=== PATIENT | male | born 1970 | race Caucasian/White ===

== ENCOUNTER → 2020-08-29 17:58 | Outpatient (CLI) | payer SELFPAY, OTHER ==
[2020-08-16 09:48] VITALS: BMI 26.6
--- NOTE | 2020-08-29 17:59 | MRI_ITS ---
STUDY: MRI BRAIN WITH AND WITHOUT CONTRAST REASON FOR EXAM: Male, 49 years old. Left frontal astrocytoma -- Compare MRI [facility] (preop), [facility] [place] (postop). TECHNIQUE: Standardized multiplanar fat and water weighted pulse sequences were obtained. IV DOTAREM 15ML was administered for the contrast portion of the examination. COMPARISON: Preoperative imaging 30 April 2020, postoperative 03 May 2020 FINDINGS: The patient has left frontal astrocytoma which was resected in early April. Early postsurgical changes are slowly involuting with shrinking of the resection cavity and resorption of hemorrhagic products. Mass effect and edema in the left frontal lobe has markedly decreased and midline shift has resolved. Exact tumor dimensions are difficult to evaluate due to diffuse ill-defined and infiltrative nature of the lesion which merges imperceptibly with adjoining normal white matter. Overall dimensions are approximately 5.4 cm AP, 4.7 cm transverse and 4.7 cm craniocaudad. There is early mild extension across the corpus callosum. Central resection cavity has mild expected and diminishing postsurgical reactive enhancement of the granulation tissue. Tumor itself does not enhance. Remainder of the brain parenchyma is normal. Major vascular flow structures are intact. MRI/Brain W/WO Contrast IMPRESSION: 1. Expected appearance of partially resected left frontal astrocytoma. 2. Decreasing postsurgical cavity and reactive change. 3. 5.4 x 4.7 x 4.7 residual left frontal lobe lesion. 4. Resolution of mass effect. Electronically Signed: Yelitza Graf MD at 20:36 EDT Tel , Service support ,
== END ==
PROVIDERS: PCP Internal Medicine; Referring Provider Internal Medicine; Visit Provider Internal Medicine
DX: C72.9 Malignant neoplasm of central nervous system, unspecified (principal); Z98.890 Other specified postprocedural states
CPT/HCPCS: 70553; A9575

== ENCOUNTER → 2021-01-22 14:45 | Outpatient (CLI) | payer SELFPAY, OTHER ==
[2021-01-22 14:46] LABS: Bacteria 0 SEEN /hpf (None Seen); Mucous, Urine 0 SEEN /hpf (<or=2+); Red Blood Cells-Urine 0 SEEN /hpf (0-5); Squamous Epithelial Cells - UA 0 SEEN /hpf (0-5); White Blood Cells 0 SEEN /hpf (0-5)
[2021-01-22 16:52] LABS: Absolute Lymphocyte Count 1.03 X10^3/uL (0.83-4.51); Absolute Neutrophil Count 3.8 X10^3/uL (2.0-7.7); Basophil# 0.02 X10^3/uL; Basophil% 0.4 % (0-1); Eosinophil# 0.05 X10^3/uL; Eosinophils% 0.9 % (0-5); Hematocrit 40.5 % (40-54); Hemoglobin 12.1 g/dL (13.0-16.5); Lymphocyte # 1.03 X10^3/ul (0.83-4.51); Lymphocyte % 18.8 % (19-41); Mean Corp Hgb Conc 29.9 g/dL (32-36); Mean Corpuscular Hgb 24.9 pg (27.0-32.0); Mean Corpuscular Volume 83.3 fL (80-94); Mean Platelet Vol. 10.7 fl (6.2-12.0); Monocyte# 0.59 X10^3/uL; Monocyte% 10.8 % (0-10); NRBC Flagged by Analyzer 0 % (0-5); Neutrophil # 3.77 X10^3/uL (2.7-7.7); Neutrophil % 68.9 % (47-70); Platelet Count 296 K/mm3 (150-450); RBC Distribution Width CV 16.4 % (11.6-14.6); RBC Distribution Width SD 50.6 fl (35.1-43.9); Red Blood Count 4.86 M/mm3 (4.6-6.2); White Blood Count 5.5 K/mm3 (4.4-11.0)
[2021-01-22 16:53] LABS: Color, Urine Yellow (Yellow); Glucose, Dipstick Normal (Normal); Ketone-Dipstick Negative (Negative); Leukocyte Esterase-Dipstick Negative /ul (Negative); Nitrite-Dipstick Negative (Negative); Occult Blood-Urine Negative /ul (Negative); Protein-Dipstick Negative (Negative); Specific Gravity, Urine 1.015 (1.002-1.030); Urine Bilirubin Dipstick Negative (Negative); Urine Clarity Clear (Clear); Urine Urobilinogen Normal (Normal)
[2021-01-22 17:44] LABS: ALB/GLOB Ratio 0.7 RATIO (0.9-2.4); AST(SGOT) 25 U/L (15-37); Alanine Aminotransfer ALT/SGPT 31 U/L (16-61); Albumin, Serum 3.3 g/dL (3.2-5.0); Alkaline Phosphatase 84 U/L (45-117); Anion Gap 7 (5-15); BUN 13 mg/dL (7-18); BUN/Creat Ratio 11.3 RATIO (10-20); Calcium,Total 9.1 mg/dL (8.5-10.1); Chloride 104 mmol/L (98-107); Creatinine, Serum 1.15 mg/dL (0.70-1.30); EST Glomerular Filtration Rate 72 mL/min (>60); Est Glom Filt Rate - Afr Amer 87 mL/min (>60); Globulin 4.7 g/dL (2.2-4.2); Glucose 72 mg/dL (74-106); PSA,Total - Annual Screen 0.52 ng/mL (0.00-4.00); Potassium 4.3 mmol/L (3.5-5.1); Sodium Level 139 mmol/L (136-145); Thyroid Stim Hormone (TSH) 5.29 uIU/mL (0.358-3.74)
--- NOTE | 2021-01-22 18:11 | MRI_ITS ---
STUDY: MRI BRAIN WITH AND WITHOUT CONTRAST REASON FOR EXAM: Male, 50 years old. Follow up MRI astrocytoma resection Apr 2020 [facility] COMPARE TO PREVIOUS TECHNIQUE: Standardized multiplanar fat and water weighted pulse sequences were obtained. IV 14ml Dotarem was administered for the contrast portion of the examination. COMPARISON: 08/29/2020. FINDINGS: Again noted is a left craniectomy with underlying left frontal surgical cavity which demonstrate minimal enhancement and surrounding edema. The surgical cavity has decreased in size in comparison with the prior examination. The surrounding edema is stable in comparison with the prior examination. There is no evidence of increased enhancement or new lesions. MRI/Brain W/WO Contrast IMPRESSION: Stable left frontal surgical cavity. Electronically Signed: Seun Matos MD at 15:01 EDT Tel , Service support ,
[2021-01-23 16:20] LABS: Free T3 2.8 pg/mL (2.18-3.98); T4 Free Direct 0.82 ng/dL (0.76-1.46)
== END ==
PROVIDERS: PCP Internal Medicine; Referring Provider Internal Medicine; Visit Provider Internal Medicine
DX: R56.9 Unspecified convulsions (principal); R94.6 Abnormal results of thyroid function studies; C71.9 Malignant neoplasm of brain, unspecified; C72.9 Malignant neoplasm of central nervous system, unspecified; Z12.5 Encounter for screening for malignant neoplasm of prostate
CPT/HCPCS: 36415; 70553; 80053; 81001; 84153; 84439; 84443; 84481; 85025; A9575; G0103

== ENCOUNTER → 2021-12-23 | Outpatient (CLI) | payer SELFPAY, OTHER ==
--- NOTE | 2021-12-23 16:53 | MRI_ITS ---
STUDY: CT BRAIN WITHOUT AND WITH CONTRAST REASON FOR EXAM: Male, 51 years old. Hx astrocytoma, L frontopar, s/p res 2020 Individualized dose optimization techniques were used for this CT. TECHNIQUE: Transaxial CT imaging of the brain was performed without/ w 15 cc of clariscan administration of intravenous contrast material. Comparison: 01/22/2021 FINDINGS: Left craniotomy changes. Normal soft tissues. Normal size ventricles and extra-axial spaces for the patient''s age. Normal white matter tracts of the cerebral hemispheres. Normal basal ganglia and thalami. Normal brainstem. There is mild cerebellar atrophy. There is a left frontal surgical cavity which demonstrate minimal enhancement and surrounding edema. The surgical cavity is stable in size. The surrounding edema is stable in comparison with the prior examination. There is no evidence of increased enhancement or new lesions. Area of enhancement has decreased in size on the left. There is no intracranial hemorrhage. There are no findings of an acute ischemic infarction. Normal visualized paranasal sinuses. ASPECTS Score for Acute Strokes: 01/06 MRI/Brain W/WO Contrast IMPRESSION: Decreased enhancement in the surgical cavity on the left suggesting improvement in findings. Electronically Signed: Gelacio Fraser MD at 21:41 EDT ,
== END | disposition home or self-care (01) ==
PROVIDERS: PCP Internal Medicine; Referring Provider Internal Medicine; Visit Provider Internal Medicine
DX: C71.9 Malignant neoplasm of brain, unspecified (principal); C72.9 Malignant neoplasm of central nervous system, unspecified
CPT/HCPCS: 70553; A9575

== ENCOUNTER → 2022-06-26 | Outpatient (CLI) | payer SELFPAY, OTHER ==
--- NOTE | 2022-06-26 17:45 | MRI_ITS ---
EXAM: MR HEAD WITHOUT AND WITH INTRAVENOUS CONTRAST CLINICAL INDICATION: History of astrocytoma. TECHNIQUE: Multiplanar and multisequence MR images of the brain were obtained without and with intravenous contrast. Magnetic field strength 1.5 T. This report was created using [employer] report XIHA technology. CONTRAST: 15cc Clariscan IV. COMPARISON: 12/23/2021 and 01/22/2021. FINDINGS: BRAIN AND EXTRA-AXIAL SPACES: Unremarkable. No intra- or extra-axial hemorrhage. No evidence of acute infarct. There is preservation of the ayala/white matter interface. Posterior fossa structures are unremarkable. Ventricles are appropriate for age. No hydrocephalus. Basal cisterns are patent. No change in the appearance of the left frontal resection cavity and surrounding vasogenic edema. No change in the minimal enhancement of the gliosis at the surgical site. SELLA: Unremarkable. Normal sella turcica, pituitary gland, infundibular stalk, optic chiasm and hypothalamus. AUDITORY SYSTEM: Unremarkable. The internal auditory canals are patent. BONES/JOINTS: Old left frontal craniotomy. No discrete lytic or blastic abnormalities. SINUSES: Unremarkable as visualized. Clear. MASTOID AIR CELLS: Unremarkable as visualized. Clear. ORBITS: Unremarkable as visualized. Both globes, extraocular muscles, optic nerves and retrobulbar fat appear unremarkable. VASCULATURE: Unremarkable as visualized. Normal flow voids in the major intracranial circulation. MRI/Brain W/WO Contrast IMPRESSION: No significant change in the appearance of the left frontal resection cavity and surrounding vasogenic edema. Electronically Signed: Dereck Ulloa MD at 0:53 EDT ,
== END | disposition home or self-care (01) ==
LOC: MRI 17:45
PROVIDERS: PCP Internal Medicine; Referring Provider Internal Medicine; Visit Provider Internal Medicine
DX: C71.9 Malignant neoplasm of brain, unspecified (principal); C72.9 Malignant neoplasm of central nervous system, unspecified; Z98.890 Other specified postprocedural states
CPT/HCPCS: 70553; A9575

== ENCOUNTER → 2023-01-19 | Outpatient (CLI) | payer SELFPAY, OTHER ==
--- NOTE | 2023-01-19 15:52 | MRI_ITS ---
STUDY: MRI BRAIN WITH AND WITHOUT CONTRAST REASON FOR EXAM: Male, 52 years old. History of brain cancer -- Compare to previous scans. TECHNIQUE: Standardized multiplanar fat and water weighted pulse sequences were obtained. IV 15ml Clariscan was administered for the contrast portion of the examination. COMPARISON: MRI of the brain dated June 26, 2022 FINDINGS: Stable appearance of the surgical resection bed in the left frontal lobe from anterior to posterior with the overlying craniotomy defects, cystic encephalomalacia in the surgical bed, chronic vasogenic edematous signal in the parenchyma, and mild residual parenchymal scarring and spiculation, that demonstrates mild enhancement, but no significant change from the June 26 2022 study. Redemonstration of diffuse edema across the body and the genu of the splenium of the corpus callosum, most pronounced on the left side and extending across the midline to the right. This is unchanged since June 26, 2022 and may be a combination of desmoplastic reaction and posttreatment changes. No visualized recurrent mass in the surgical bed with enhancement. No new masses or metastatic lesions are seen in the remaining aspects of the cerebral hemispheres. No demonstrated thickening or abnormal enhancement of the dura or meninges on the current study. No midline shift or hydrocephalus is present. There is mild cerebral atrophy with widening of the extra-axial spaces and ventricular dilatation. There are a limited number of small white matter hyperintensities, distributed throughout the deep white matter tracts of the cerebral hemispheres, consistent with mild chronic white matter ischemic changes. There is no evidence for recent intracranial ischemia or other cause of cytotoxic edema on diffusion weighted imaging (DWI). Normal T2* images of the brain without demonstrated susceptibility artifact. There is no demonstrated hemosiderin stain. Normal bilateral basal ganglia. Normal thalami. There is no extra-axial fluid accumulation. Normal flow voids within the major intracranial circulation suggesting patency by spin echo criteria. Normal venous enhancement. Normal sella turcica, pituitary gland, infundibular stalk, optic chiasm and hypothalamus. Normal tectal plate and pineal gland. Normal midbrain, sara and medulla. Normal cerebellum. Normal basal cisterns. Normal bilateral temporal bones. Normal bilateral internal auditory canals. No demonstrated orbital abnormality, within the constraints of a routine brain study. Normal visualized paranasal sinuses. Normal calvarium and skull base. Normal visualized soft tissue structures. Normal visualized upper cervical spine. MRI/Brain W/WO Contrast IMPRESSION: 1. Stable appearance of the surgical resection bed in the left frontal lobe from anterior to posterior with the overlying craniotomy defects, cystic encephalomalacia in the surgical bed, chronic vasogenic edematous signal in the parenchyma, and mild residual parenchymal scarring and spiculation, that demonstrates mild enhancement, but no significant change from the June 26 2022 study. Redemonstration of diffuse edema across the body and the genu of the splenium of the corpus callosum, most pronounced on the left side and extending across the midline to the right. This is unchanged since June 26, 2022 and may be a combination of desmoplastic reaction and posttreatment changes. 2. No visualized recurrent mass in the surgical bed with enhancement. 3. No new masses or metastatic lesions are seen in the remaining aspects of the cerebral hemispheres. 4. No demonstrated thickening or abnormal enhancement of the dura or meninges on the current study. Electronically Signed: Tru Freedman MD at 14:31 EDT ,
[2023-01-19 16:30] LABS: Absolute Lymphocyte Count 1.26 X10^3/uL (0.83-4.51); Absolute Neutrophil Count 3.4 X10^3/uL (2.0-7.7); Basophil# 0.01 X10^3/uL; Basophil% 0.2 % (0-1); Eosinophil# 0.08 X10^3/uL; Eosinophils% 1.5 % (0-5); Hematocrit 41.9 % (40-54); Lymphocyte # 1.26 X10^3/ul (0.83-4.51); Lymphocyte % 24.1 % (19-41); Mean Corp Hgb Conc 33.4 g/dL (32-36); Mean Corpuscular Hgb 29.5 pg (27.0-32.0); Mean Corpuscular Volume 88.4 fL (80-94); Mean Platelet Vol. 9.6 fl (6.2-12.0); Monocyte# 0.44 X10^3/uL; Monocyte% 8.4 % (0-10); NRBC Flagged by Analyzer 0 % (0-5); Neutrophil # 3.42 X10^3/uL (2.7-7.7); Neutrophil % 65.6 % (47-70); Platelet Count 225 K/mm3 (150-450); RBC Distribution Width CV 12.5 % (11.6-14.6); RBC Distribution Width SD 40.4 fl (35.1-43.9); Red Blood Count 4.74 M/mm3 (4.6-6.2); White Blood Count 5.2 K/mm3 (4.4-11.0)
[2023-01-19 17:16] LABS: Vitamin D,25 Hydroxy 56.2 ng/mL
[2023-01-19 17:19] LABS: ALB/GLOB Ratio 0.9 RATIO (0.9-2.4); AST(SGOT) 22 U/L (15-37); Alanine Aminotransfer ALT/SGPT 32 U/L (16-61); Albumin, Serum 3.4 g/dL (3.2-5.0); Alkaline Phosphatase 70 U/L (45-117); Anion Gap 3 (5-15); BUN 14 mg/dL (7-18); Calcium,Total 8.9 mg/dL (8.5-10.1); Chloride 106 mmol/L (98-107); Cholesterol 195 mg/dL (200); Creatinine, Serum 0.93 mg/dL (0.70-1.30); EST Glomerular Filtration Rate 91 mL/min (>60); Est Glom Filt Rate - Afr Amer 110 mL/min (>60); Free T3 2.9 pg/mL (2.18-3.98); Globulin 3.9 g/dL (2.2-4.2); Glucose 66 mg/dL (74-106); High Density Lipoprotein 60 mg/dL; PSA,Total - Annual Screen 0.94 ng/mL (0.00-4.00); Protein, Total 7.3 g/dL (6.4-8.2); Sodium Level 140 mmol/L (136-145); T4 Free Direct 0.88 ng/dL (0.76-1.46); Thyroid Stim Hormone (TSH) 3.89 uIU/mL (0.358-3.74); Triglycerides 122 mg/dL; Very Low Density Lipoprotein 24 mg/dL (5-40)
== END | disposition home or self-care (01) ==
LOC: MRI 15:47
PROVIDERS: PCP Internal Medicine; Referring Provider Internal Medicine; Visit Provider Internal Medicine
DX: Z13.220 Encounter for screening for lipoid disorders (principal); C71.9 Malignant neoplasm of brain, unspecified; R56.9 Unspecified convulsions; R79.89 Other specified abnormal findings of blood chemistry; Z98.890 Other specified postprocedural states; Z12.5 Encounter for screening for malignant neoplasm of prostate
CPT/HCPCS: 36415; 70553; 80053; 80061; 82306; 84153; 84439; 84443; 84481; 85025; A9575; G0103

== ENCOUNTER → 2023-07-27 | Outpatient (CLI) | payer SELFPAY, OTHER ==
--- NOTE | 2023-07-27 06:44 | MRI_ITS ---
EXAM: MR HEAD WITHOUT AND WITH INTRAVENOUS CONTRAST CLINICAL INDICATION: History of diffuse astrocytoma, SP craniotomy TECHNIQUE: Multiplanar and multisequence MR images of the brain were obtained without and with intravenous contrast. CONTRAST: 15 mL of IV Clariscan. COMPARISON: MRI brain with and without contrast 01/19/2023. FINDINGS: BRAIN AND EXTRA-AXIAL SPACES: There is a solid T1 hypointense mass measuring 2.8 x 1.7 cm in the left frontal lobe with surrounding vasogenic edema. This is hyperintense on T2 and hypointense on flair sequence. There is a surgical cavity in the left frontal lobe convexity underneath the craniotomy site with very minimal ill-defined contrast enhancement anterior end underneath the surgical cavity. There is increase in mass effect with more caudal displacement of the anterior body of the left lateral ventricle and 6.6 mm [id number] midline shift across the anterior interhemispheric fissure, previously 6.3 mm. No intra- or extra-axial hemorrhage. No evidence of acute infarct. Posterior fossa structures are unremarkable. No hydrocephalus. Basal cisterns are patent. SELLA: Unremarkable. Normal sella turcica, pituitary gland, infundibular stalk, optic chiasm and hypothalamus. AUDITORY SYSTEM: Unremarkable. The internal auditory canals are patent. BONES/JOINTS: Left frontal bone craniotomy site is unchanged. No discrete lytic or blastic abnormalities. SINUSES: Unremarkable as visualized. Clear. MASTOID AIR CELLS: Unremarkable as visualized. Clear. ORBITS: Unremarkable as visualized. Both globes, extraocular muscles, optic nerves and retrobulbar fat appear unremarkable. VASCULATURE: Unremarkable as visualized. Normal flow voids in the major intracranial circulation. MRI/Brain W/WO Contrast IMPRESSION: Suspicious increasing size of the nonenhancing component of the solid mass in the left frontal lobe. This is hypointense on T1, hyperintense on T2 and hypointense on FLAIR sequences. This measures approximately 2.8 x 1.9 cm in the axial projection, previously 2.6 x 1.5 cm. In the coronal projection, this measures 3 x 2.8 cm, previously 2.8 x 2.7 cm. There is increasing surrounding vasogenic edema with increased caudal displacement of the anterior body of the left lateral ventricle and slight increase in [id number] midline shift across the anterior interhemispheric fissure at 6.6 mm, previously 6.3 mm. The faint contrast enhancement underneath and anterior to the surgical cavity in the left frontal lobe convexity is unchanged. Electronically Signed: Eros Reeves MD at 9:02 EDT ,
== END | disposition home or self-care (01) ==
PROVIDERS: PCP Internal Medicine; Referring Provider Internal Medicine; Visit Provider Internal Medicine
DX: C71.9 Malignant neoplasm of brain, unspecified (principal); Z98.890 Other specified postprocedural states
CPT/HCPCS: 70553; A9575